=== PATIENT | female | born 1940 | race Caucasian/White ===

== ENCOUNTER 2018-03-08 08:50 | Day surgery (SDC) | payer BC ==
[~2018-03-08] VITALS: Ht 170.2 cm; Wt 80.7 kg
[~2018-03-08 08:50] MED LIST: CLINDAMYCIN PHOS 600 MG/ D5W 50 ML PREMIX IV ONE
[2018-03-08] MEDS ORDERED: ONDANSETRON HCL 4 MG/2 ML VIAL IVP PRN (13:00)
[2018-03-08] MEDS ORDERED: fentaNYL CITRATE/PF 100 MCG/2 ML AMP IVP PRN (13:00)
[2018-03-08] MEDS ORDERED: MIDAZOLAM HCL 5 MG/ML VIAL (VERSED) IV ONE (13:35)
[2018-03-08] MEDS ORDERED: D5/0.45 NS 1,000 ML IV SCH (13:35)
[2018-03-08] MEDS ORDERED: LR 1,000 ML IV.SOLN IV ONE (13:35)
[2018-03-08] MEDS ORDERED: BUPIVACAINE /PF 0.25% 30 ML VIAL INJ ONE (13:35)
[2018-03-08] MEDS ORDERED: fentaNYL CITRATE/PF 100 MCG/2 ML AMP ONE ×2 (13:35→14:19)
[2018-03-08] MEDS ORDERED: SEVOFLURANE 15 MIN GAS INH ONE (13:35)
[2018-03-08] MEDS ORDERED: PROPOFOL 200MG/ 20ML VIAL (DIPRIVAN) IV ONE (13:35)
[2018-03-08] MEDS ORDERED: HYDROmorphone 1 MG INJ. 1 MG/ML AMPUL IVP PRN (13:45)
[2018-03-08] MEDS ORDERED: HYDROcodone/ACETAMIN 5-325 MG TAB (NORCO/ VICODIN) PO PRN ×2 (13:45)
[2018-03-08] MEDS: fentaNYL CITRATE/PF 100 MCG/2 ML AMP IVP PRN ×2 (14:05→14:26)
[2018-03-08 14:52] VITALS: BP_SYST 126
== END 2018-03-08 16:20 | disposition home or self-care (01) ==
LOC: SDS 08:50
PROVIDERS: ATTEND Colon & Rectal Surgery
DX: C50.912 Malignant neoplasm of unspecified site of left female breast (principal); D49.89 Neoplasm of unspecified behavior of other specified sites; J30.9 Allergic rhinitis, unspecified; I72.8 Aneurysm of other specified arteries; H40.9 Unspecified glaucoma; J34.3 Hypertrophy of nasal turbinates; K58.9 Irritable bowel syndrome, unspecified; I34.1 Nonrheumatic mitral (valve) prolapse; G62.9 Polyneuropathy, unspecified; H40.1190 Primary open-angle glaucoma, unspecified eye, stage unspecified; Z79.899 Other long term (current) drug therapy; K21.0 Gastro-esophageal reflux disease with esophagitis; Z88.8 Allergy status to other drugs, medicaments and biological substances; Z88.0 Allergy status to penicillin; Z88.2 Allergy status to sulfonamides
CPT/HCPCS: 19081; 19301; 38525; 78195; 88305; 88307; 88333; 88342; A9541; J2250; J2704; J3010; J3490 ×2; J7120